=== PATIENT | male | born 1995 | race Two or more races ===

== ENCOUNTER 2017-11-05 14:14 | Emergency (ER) | payer OTHER ==
--- NOTE | 2017-11-05 14:32 | EDM.PDOC ---
ED HPI GENERAL MEDICAL PROBLEM - General Chief Complaint: Genitourinary Problem Time Seen by Provider: 11/05/17 14:31 Source of Information: Reports: Patient, RN, RN Notes Reviewed History Limitations: Reports: No Limitations - History of Present Illness INITIAL COMMENTS - FREE TEXT/NARRATIVE: Patient presents to the ED at [facility] complaining of left testicular pain that start about one week ago. Patient denies any injury or trauma to the testicle. Patient states he did have unprotected sex and is concerned about an STI. He denies any abdominal or pelvic pain. No previous testicular pain. No odor or mucous in urine. The pain waxed and wains. It feels more like a discomfort than pain. Urination makes the pain better. Left Perineal Area Pain Score (Numeric/FACES): 5 - Related Data Allergies Allergy/AdvReac Type Severity Reaction Status Date / Time No Known Allergies Allergy Verified 11/05/17 14:23 Home Meds: Home Meds Doxycycline [Vibramycin] 1 cap PO BID 14 Days #28 cap 11/05/17 [Rx] Past Medical History - Past Health History Medical/Surgical History: Denies Medical/Surgical History Social & Family History - Tobacco Use Smoking Status *Q: Never Smoker ED ROS GENERAL - Review of Systems Review Of Systems: See Below Constitutional: Denies: Fever, Chills, Weakness Respiratory: Denies: Shortness of Breath, Cough Cardiovascular: Denies: Chest Pain, Palpitations GI/Abdominal: Denies: Abdominal Pain, Nausea, Vomiting : Reports: Other (left testicular pain) Skin: Reports: No Symptoms Neurological: Reports: No Symptoms ED EXAM, RENAL/ - Physical Exam Exam: See Below Exam Limited By: No Limitations General Appearance: Alert, No Apparent Distress Respiratory/Chest: No Respiratory Distress, Lungs Clear, Normal Breath Sounds Cardiovascular: Normal Peripheral Pulses, Regular Rate, Rhythm GI/Abdominal: Normal Bowel Sounds, Soft, Non-Tender (Male) Exam: Normal Inspection, Testicular Tenderness (L). No: Penile Lesions, Scrotal Swelling, Scrotum Tenderness (L), Scrotum Tenderness (R), Testicular Mass, Urethral Discharge Neurological: Alert, Oriented Skin Exam: Warm, Dry, Intact, Normal Color, No Rash Course - Vital Signs Last Recorded V/S: Last Vital Signs Temp 36.3 C 11/05/17 14:23 Pulse 59 L 11/05/17 14:23 Resp 16 11/05/17 14:23 BP 154/79 H 11/05/17 14:23 Pulse Ox 98 11/05/17 14:23 - Orders/Labs/Meds Orders: Active Orders 24 hr Category Date Time Status CHLAMYDIA/GC NUCLEIC ACID AMP [MREF] Routine Lab 11/05/17 14:46 Ordered UA W/MICROSCOPIC [URIN] Stat Lab 11/05/17 14:46 Ordered Labs: Laboratory Tests 11/05/17 Range/Units 14:46 Urine Color Light yellow (YELLOW) Urine Appearance Clear (CLEAR) Urine pH 7.0 (5.0-8.0) Ur Specific [place] 1.010 Urine Protein Negative (NEGATIVE) mg/dL Urine Glucose (UA) Negative (NEGATIVE) mg/dL Urine Ketones Negative (NEGATIVE) mg/dL Urine Occult Blood Negative (NEGATIVE) Urine Nitrite Negative (NEGATIVE) Urine Bilirubin Negative (NEGATIVE) Urine Urobilinogen 0.2 (0.2) EU/dL Ur Leukocyte Esterase Negative (NEGATIVE) Meds: Medications Discontinued Medications Generic Name Dose Route Start Last Admin Trade Name Rafiq PRN Reason Stop Dose Admin Ceftriaxone Sodium 1 gm/ 0 gm 11/05/17 14:54 Lidocaine HCl 2.1 ml IM 11/05/17 14:55 ONETIME ONE Departure - Departure Time of Disposition: 14:59 Disposition: Home, Self-Care 01 Condition: Good Clinical Impression: Epididymitis - Discharge Information Prescriptions: Doxycycline [Vibramycin] 1 cap PO BID 14 Days #28 cap Instructions: Epididymitis, Testicular Self-Exam, Doxycycline tablets or capsules Forms: ED Department Discharge Additional Instructions: 1. Stay well hydrated and rest 2. Take antibiotic for the full coarse, even if you are feeling better, do not stop taking it 3. No sexual intercourse until you have finished all the medication 4. Will contact you when all test results are available 5. Call us with any questions/concerns - Problem List Review Problem List Initiated/Reviewed/Updated: Yes - My Orders Last 24 Hours: My Active Orders 11/05/17 14:46 CHLAMYDIA/GC NUCLEIC ACID AMP [MREF] Routine UA W/MICROSCOPIC [URIN] Stat - Assessment/Plan Last 24 Hours: My Active Orders 11/05/17 14:46 CHLAMYDIA/GC NUCLEIC ACID AMP [MREF] Routine UA W/MICROSCOPIC [URIN] Stat Assessment:: Acute Epididymitis Possible STD exposure Plan: Will empirically treat patient for STD given unprotected sexual intercourse and current symptoms. Will give 1gram IM Rocephin and start Doxy 100mg PO BID for 14 days.
[2017-11-05] MEDS ORDERED: cefTRIAXone 1 GM, Lidocaine 1% 2.1 ML IM ONE ×2 (14:54)
== END 2017-11-05 15:30 | disposition home or self-care (01) ==
LOC: VM.ED 14:14
DX: N45.1 Epididymitis (principal)
CPT/HCPCS: 81001; 96372; 99284; J0696; 87491; 87591